=== PATIENT | female | born 1995 | race Caucasian/White ===

== ENCOUNTER 2016-10-27 03:15 | Emergency (ER) | payer MEDICAID ==
[2016-10-27] MEDS ORDERED: Sodium Chloride 0.9% 10 ML Syringe FLUSH PRN (03:20)
[2016-10-27] MEDS ORDERED: Sodium Chloride 0.9% 1,000 ML IV SCH ×3 (03:30→07:15)
[2016-10-27] MEDS ORDERED: Haloperidol Lactate 5 MG/ML SDV IVPUSH ONE (03:34)
[2016-10-27] MEDS ORDERED: Haloperidol Lactate 5 MG/ML SDV ONE (03:39)
[2016-10-27] MEDS ORDERED: Lidocaine 1% 50 ML MDV INJECT ONE (04:04)
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
[2016-10-27] MEDS ORDERED: Sodium Chloride 0.9% 1,000 ML ONE (05:05)
[2016-10-27 11:46] VITALS: BP 115/69
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
== END 2016-10-27 20:01 ==
LOC: JD.ED 03:15
DX: T45.0X2A Poisoning by antiallergic and antiemetic drugs, intentional self-harm, initial encounter (principal); S51.812A Laceration without foreign body of left forearm, initial encounter; F10.920 Alcohol use, unspecified with intoxication, uncomplicated; F19.10 Other psychoactive substance abuse, uncomplicated; F17.210 Nicotine dependence, cigarettes, uncomplicated; F32.9 Major depressive disorder, single episode, unspecified; Z91.040 Latex allergy status; X78.9XXA Intentional self-harm by unspecified sharp object, initial encounter
CPT/HCPCS: 12002; 36415; 80053; 80306; 85025; 93005; 96361; 96374; 99285; G0480; J1630; J7040; J7050; 99284-25